=== PATIENT | female | born 1965 | race Caucasian/White ===

== ENCOUNTER 2018-11-10 17:47 | Inpatient (IN) | payer MEDICARE ==
[2018-11-10 19:02] LABS: ADD MAN DIFF? NO
[2018-11-10] MEDS: SOD CHLORIDE 0.9% 750 ML IV (19:05)
[2018-11-10 19:06] LABS: MODE ROOM AIR; MetHgb Venous 0.1 %; Sample Type Blood venous; Site VENOUS LINE; Venous COHb 0.4 %; Venous Fraction OxyHgb 49.4 %; Venous Oxygen Sat 49.6 mmHG (55.0-75.0); Venous Total Hemglobin 11.7 g/dl
[2018-11-10 19:07] LABS: WHITE BLOOD COUNT 12.1 10^3/ul (4.8-10.8)
[2018-11-10 19:07] LABS: BASOPHIL # 0.1 10^3/ul (0.0-0.1); BASOPHILS % 0.7 % (0.0-2.0); EOSINOPHILS # 0.2 10^3/ul (0.0-0.5); EOSINOPHILS % 1.6 % (0.0-7.0); HEMATOCRIT 35.6 % (37.0-47.0); HEMOGLOBIN 11.3 g/dl (12.0-16.0); LYMPHOCYTES # 2.3 10^3/ul (0.8-2.9); LYMPHOCYTES % 18.7 % (15.0-51.0); MEAN CORPUSCULAR HEMOGLOBIN 26.2 pg (29.0-33.0); MEAN CORPUSCULAR HGB CONC 31.7 g/dl (32.0-37.0); MEAN CORPUSCULAR VOLUME 82.6 fl (82.0-101.0); MEAN PLATELET VOLUME 12.2 fl (7.4-10.4); MONOCYTE # 0.9 10^3/ul (0.3-0.9); MONOCYTES % 7.8 % (0.0-11.0); NEUTROPHIL # 8.5 10^3/ul (1.6-7.5); PLATELET COUNT 356 10^3/UL (140-415); RED BLOOD COUNT 4.31 10^6/ul (4.20-5.40)
[2018-11-10 19:25] LABS: ALANINE AMINOTRANSFERASE 7 IU/L (13-69); ALBUMIN 2.9 g/dl (3.3-4.9); ALBUMIN/GLOBULIN RATIO 0.78; ALKALINE PHOSPHATASE 298 IU/L (42-121); ANION GAP 7 (5-13); ASPARTATE AMINO TRANSFERASE 16 IU/L (15-46); BILIRUBIN,INDIRECT 0.3 mg/dl (0-1.1); BILIRUBIN,TOTAL 0.3 mg/dl (0.2-1.3); BLOOD UREA NITROGEN 35 mg/dl (7-20); CALCIUM 8.6 mg/dl (8.4-10.2); CARBON DIOXIDE 24 mmol/L (21-31); CHLORIDE 93 mmol/L (97-110); CREATININE 2.02 mg/dl (0.44-1.00); Estimated GFR 26 mL/min (>60); PHOSPHORUS 4.9 mg/dl (2.5-4.9); POTASSIUM 3.8 mmol/L (3.5-5.1); SODIUM 124 mmol/L (135-144); TOTAL PROTEIN 6.6 g/dl (6.1-8.1)
[2018-11-10 19:33] LABS: INR 0.86; PROTIME 11.8 Sec (11.9-14.9); PT RATIO 0.9
[2018-11-10 19:35] LABS: GLUCOSE 854 mg/dl (70-220); TROPONIN-I < 0.012 ng/ml (0.000-0.120)
[2018-11-10] MEDS: LABETALOL HCL 20MG INJ IV (19:37)
[2018-11-10] MEDS: INSULIN REGULAR, HUMAN 100 UNIT/1 ML 3ML VIAL SC (20:25)
[2018-11-10] MEDS: hydrALAzine 20 MG INJ IV (20:25)
[2018-11-10] MEDS: ACCU-CHEK XX ×4 (21:27→23:30)
[2018-11-10] MEDS ORDERED: DEXTROSE 50% 50 ML SYRINGE IV ×4 (21:30→22:30)
[2018-11-10] MEDS: INSULIN HUMAN REGULAR 100 UNIT in SOD CHLORIDE 0.9% 99 ML IV (21:48)
[2018-11-10 22:16] LABS: ADD UMIC YES; UR ASCORBIC ACID NEGATIVE (NEGATIVE); UR BILIRUBIN (Dip) NEGATIVE (NEGATIVE); UR BLOOD (Dip) NEGATIVE (NEGATIVE); UR CLARITY CLEAR (CLEAR); UR COLOR COLORLESS (YELLOW); UR GLUCOSE (Dip) 3+ mg/dL (NEGATIVE); UR KETONES (Dip) TRACE mg/dL (NEGATIVE); UR LEUKOCYTE ESTERASE (Dip) NEGATIVE Leu/ul (NEGATIVE); UR NITRITE (Dip) NEGATIVE (NEGATIVE); UR RBC 1 /HPF (0-5); UR SPECIFIC GRAVITY (Dip) 1.016 (1.003-1.030); UR TOTAL PROTEIN (Dip) 3+ mg/dl (NEGATIVE); UR UROBILINOGEN (Dip) NEGATIVE (NEGATIVE); UR WBC 0 /HPF (0-5)
[2018-11-10] MEDS ORDERED: ALBUTEROL/IPRATROPIUM (NEB) 3 ML AMP NEB (22:30)
[2018-11-10] MEDS ORDERED: INSULIN HUMAN REGULAR 100 UNIT in SOD CHLORIDE 0.9% 99 ML IV (23:00)
[2018-11-10] MEDS: SOD CHLORIDE 0.9% 1,000 ML IV (23:50)
[2018-11-11] MEDS: ACCU-CHEK XX ×9 (01:07→09:04)
[2018-11-11] MEDS: morphine 4 MG/ML VIAL IV (01:26)
[2018-11-11 01:41] LABS: ANION GAP 12 (5-13); BLOOD UREA NITROGEN 34 mg/dl (7-20); CALCIUM 9.3 mg/dl (8.4-10.2); CARBON DIOXIDE 18 mmol/L (21-31); CHLORIDE 104 mmol/L (97-110); CREATININE 1.92 mg/dl (0.44-1.00); Estimated GFR 27 mL/min (>60); GLUCOSE 276 mg/dl (70-220); MAGNESIUM 1.8 mg/dl (1.7-2.5); PHOSPHORUS 1.7 mg/dl (2.5-4.9); SODIUM 134 mmol/L (135-144)
[2018-11-11 01:44] LABS: POTASSIUM 2.8 mmol/L (3.5-5.1)
[2018-11-11] MEDS: MAGNESIUM SULFATE 2 GM/50 ML 50 ML IVPB (02:31)
[2018-11-11] MEDS ORDERED: POTASSIUM CHLORIDE 20 MEQ in SOD CHLORIDE 0.9% 1,000 ML IV (02:51)
[2018-11-11] MEDS: NS + KCL 20 MEQ 1,000 ML IV ×3 (03:00→23:00)
[2018-11-11] MEDS: POTASSIUM PHOSPHATE 30 MM in SOD CHLORIDE 0.9% 250 ML IVPB (04:07)
[2018-11-11] MEDS: ONDANSETRON 4 MG INJ IV (05:16)
[2018-11-11] MEDS: HEPARIN 5,000 UNIT/1 ML VIAL SC ×2 (08:45→20:39)
[2018-11-11] MEDS: FAMOTIDINE 20 MG INJ IV (08:45)
[2018-11-11] MEDS: ACETAMINOPHEN 650MG/20.3ML CUP PO (08:51)
[2018-11-11 09:13] LABS: ADD MAN DIFF? NO
[2018-11-11 09:15] LABS: WHITE BLOOD COUNT 10.8 10^3/ul (4.8-10.8)
[2018-11-11 09:15] LABS: BASOPHILS % 0.4 % (0.0-2.0); EOSINOPHILS % 0.1 % (0.0-7.0); HEMATOCRIT 32.2 % (37.0-47.0); HEMOGLOBIN 10.8 g/dl (12.0-16.0); LYMPHOCYTES # 1.6 10^3/ul (0.8-2.9); LYMPHOCYTES % 15.1 % (15.0-51.0); MEAN CORPUSCULAR HEMOGLOBIN 26.5 pg (29.0-33.0); MEAN CORPUSCULAR HGB CONC 33.5 g/dl (32.0-37.0); MEAN CORPUSCULAR VOLUME 78.9 fl (82.0-101.0); MEAN PLATELET VOLUME 11.6 fl (7.4-10.4); MONOCYTE # 0.6 10^3/ul (0.3-0.9); MONOCYTES % 5.8 % (0.0-11.0); NEUTROPHIL # 8.4 10^3/ul (1.6-7.5); NEUTROPHILS % 77.3 % (39.0-77.0); PLATELET COUNT 355 10^3/UL (140-415); RED BLOOD COUNT 4.08 10^6/ul (4.20-5.40); RED CELL DISTRIBUTION WIDTH 14.2 % (11.5-14.5)
[2018-11-11 09:32] LABS: MAGNESIUM 2.5 mg/dl (1.7-2.5)
[2018-11-11 09:34] LABS: ALANINE AMINOTRANSFERASE 9 IU/L (13-69); ALBUMIN 2.6 g/dl (3.3-4.9); ALBUMIN/GLOBULIN RATIO 0.74; ALKALINE PHOSPHATASE 192 IU/L (42-121); ANION GAP 6 (5-13); ASPARTATE AMINO TRANSFERASE 19 IU/L (15-46); BILIRUBIN,INDIRECT 0.2 mg/dl (0-1.1); BILIRUBIN,TOTAL 0.2 mg/dl (0.2-1.3); BLOOD UREA NITROGEN 31 mg/dl (7-20); CALCIUM 8.5 mg/dl (8.4-10.2); CARBON DIOXIDE 23 mmol/L (21-31); CHLORIDE 107 mmol/L (97-110); CREATININE 1.81 mg/dl (0.44-1.00); Estimated GFR 29 mL/min (>60); GLUCOSE 155 mg/dl (70-220); HDL CHOLESTEROL 32 mg/dl (37-92); POTASSIUM 4.2 mmol/L (3.5-5.1); SODIUM 136 mmol/L (135-144); TOTAL PROTEIN 6.1 g/dl (6.1-8.1)
[2018-11-11 11:07] LABS: CHOL/HDL RATIO 13.3 RATIO; CHOLESTEROL 428 mg/dl (100-200); LDL CHOLESTEROL,CALCULATED 239 mg/dl
[2018-11-11 11:08] LABS: TRIGLYCERIDES 786 mg/dl (0-149)
[2018-11-11] MEDS: INSULIN ASPART [NOVOLOG] 3 ML PEN SC ×5 (11:30→20:37)
[2018-11-11 11:33] LABS: IRON 32 ug/dl (35-150)
[2018-11-11 11:42] LABS: % IRON SATURATION 22 % SAT (22-52); TOTAL IRON BINDING CAPACITY 145 ug/dl (241-421)
[2018-11-11] MEDS: INSULIN GLARGINE [LANTus] (100 UNITS/ML) SYG SC (11:46)
[2018-11-11 11:47] LABS: FREE T4 (FREE THYROXINE) 0.92 ng/dl (0.64-1.79)
[2018-11-11] MEDS: POTASSIUM PHOSPHATE 40 MEQ in SOD CHLORIDE 0.9% 250 ML IVPB (12:00)
[2018-11-11] MEDS ORDERED: GLUCOSE GEL 15 GRAM TUBE PO ×2 (12:30)
[2018-11-11] MEDS ORDERED: GLUCOSE GEL 15 GRAM TUBE BUCCAL (12:30)
[2018-11-11] MEDS ORDERED: GLUCAGON 1 MG INJ IM (12:30)
[2018-11-11] MEDS ORDERED: DEXTROSE 50% 50 ML SYRINGE IV ×2 (12:30)
[2018-11-11] MEDS ORDERED: INSULIN GLARGINE [LANTus] (100 UNITS/ML) SYG SC (20:00)
[2018-11-11 23:01] LABS: SODIUM,URINE RANDOM 41 mmol/L (30-90)
[2018-11-11 23:01] LABS: POTASSIUM,URINE RANDOM 52.4 mmol/L (25-125)
[2018-11-11 23:06] LABS: CREATININE,URINE RANDOM 56.77 mg/dl (20-320)
[2018-11-11 23:31] LABS: PROTEIN/CREAT RATIO 14.97 RATIO
[2018-11-12] MEDS: ACCU-CHEK XX (01:00)
[2018-11-12] MEDS: NS + KCL 20 MEQ 1,000 ML IV (01:08)
[2018-11-12] MEDS: hydrALAzine 20 MG INJ IV ×3 (03:39→20:46)
[2018-11-12 05:05] LABS: ADD MAN DIFF? NO
[2018-11-12 05:12] LABS: WHITE BLOOD COUNT 11.3 10^3/ul (4.8-10.8)
[2018-11-12 05:13] LABS: BASOPHIL # 0.1 10^3/ul (0.0-0.1); BASOPHILS % 0.5 % (0.0-2.0); EOSINOPHILS # 0.3 10^3/ul (0.0-0.5); EOSINOPHILS % 2.2 % (0.0-7.0); HEMATOCRIT 30.5 % (37.0-47.0); HEMOGLOBIN 9.8 g/dl (12.0-16.0); LYMPHOCYTES # 3.2 10^3/ul (0.8-2.9); LYMPHOCYTES % 28.7 % (15.0-51.0); MEAN CORPUSCULAR HEMOGLOBIN 26.3 pg (29.0-33.0); MEAN CORPUSCULAR HGB CONC 32.1 g/dl (32.0-37.0); MEAN PLATELET VOLUME 11.9 fl (7.4-10.4); MONOCYTE # 0.9 10^3/ul (0.3-0.9); MONOCYTES % 7.9 % (0.0-11.0); NEUTROPHIL # 6.7 10^3/ul (1.6-7.5); NEUTROPHILS % 59.3 % (39.0-77.0); PLATELET COUNT 327 10^3/UL (140-415); RED BLOOD COUNT 3.72 10^6/ul (4.20-5.40); RED CELL DISTRIBUTION WIDTH 14.6 % (11.5-14.5)
[2018-11-12 05:30] LABS: MAGNESIUM 2.2 mg/dl (1.7-2.5)
[2018-11-12 05:36] LABS: ANION GAP 4 (5-13); BLOOD UREA NITROGEN 28 mg/dl (7-20); CARBON DIOXIDE 20 mmol/L (21-31); CHLORIDE 113 mmol/L (97-110); CREATININE 1.97 mg/dl (0.44-1.00); Estimated GFR 27 mL/min (>60); GLUCOSE 289 mg/dl (70-220); POTASSIUM 4.8 mmol/L (3.5-5.1); SODIUM 137 mmol/L (135-144)
[2018-11-12 05:38] LABS: URIC ACID 6.6 mg/dl (3.1-7.9)
[2018-11-12 05:38] LABS: CREATINE KINASE 86 IU/L (23-200)
[2018-11-12] MEDS: ACETAMINOPHEN 650MG/20.3ML CUP PO ×2 (07:23→13:37)
[2018-11-12] MEDS: INSULIN ASPART [NOVOLOG] 3 ML PEN SC ×7 (07:58→20:59)
[2018-11-12] MEDS: FAMOTIDINE 20 MG INJ IV (09:05)
[2018-11-12] MEDS: HEPARIN 5,000 UNIT/1 ML VIAL SC ×2 (09:07→21:15)
[2018-11-12] MEDS: SOD CHLORIDE 0.9% 1,000 ML IV ×2 (10:01→18:31)
[2018-11-12] MEDS: SOD FERRIC GLUC COMPLX 125 MG in SOD CHLORIDE 0.9% 100 ML IVPB (17:38)
[2018-11-12] MEDS ORDERED: INSULIN GLARGINE [LANTus] (100 UNITS/ML) SYG SC (20:00)
[2018-11-12] MEDS: INSULIN GLARGINE [LANTus] (100 UNITS/ML) SYG SC (21:14)
[2018-11-13] MEDS: ACCU-CHEK XX (02:31)
[2018-11-13] MEDS: hydrALAzine 20 MG INJ IV (04:13)
[2018-11-13] MEDS: ACETAMINOPHEN 650MG/20.3ML CUP PO (04:13)
[2018-11-13 05:19] LABS: ADD MAN DIFF? NO
[2018-11-13 05:46] LABS: ANION GAP 6 (5-13); BLOOD UREA NITROGEN 29 mg/dl (7-20); CALCIUM 8.4 mg/dl (8.4-10.2); CARBON DIOXIDE 16 mmol/L (21-31); CHLORIDE 115 mmol/L (97-110); CREATININE 1.95 mg/dl (0.44-1.00); Estimated GFR 27 mL/min (>60); GLUCOSE 262 mg/dl (70-220); MAGNESIUM 2.1 mg/dl (1.7-2.5); PHOSPHORUS 4.3 mg/dl (2.5-4.9); POTASSIUM 4.5 mmol/L (3.5-5.1); SODIUM 137 mmol/L (135-144)
[2018-11-13 06:58] LABS: WHITE BLOOD COUNT 12.1 10^3/ul (4.8-10.8)
[2018-11-13 06:58] LABS: BASOPHIL # 0.1 10^3/ul (0.0-0.1); BASOPHILS % 0.6 % (0.0-2.0); EOSINOPHILS # 0.2 10^3/ul (0.0-0.5); EOSINOPHILS % 1.7 % (0.0-7.0); HEMATOCRIT 30.5 % (37.0-47.0); HEMOGLOBIN 9.9 g/dl (12.0-16.0); LYMPHOCYTES # 2.2 10^3/ul (0.8-2.9); LYMPHOCYTES % 18.4 % (15.0-51.0); MEAN CORPUSCULAR HEMOGLOBIN 26.6 pg (29.0-33.0); MEAN CORPUSCULAR HGB CONC 32.5 g/dl (32.0-37.0); MEAN PLATELET VOLUME 11.8 fl (7.4-10.4); MONOCYTES % 7.9 % (0.0-11.0); NEUTROPHIL # 8.5 10^3/ul (1.6-7.5); NEUTROPHILS % 69.8 % (39.0-77.0); PLATELET COUNT 344 10^3/UL (140-415); RED BLOOD COUNT 3.72 10^6/ul (4.20-5.40); RED CELL DISTRIBUTION WIDTH 14.8 % (11.5-14.5)
[2018-11-13] MEDS: SOD CHLORIDE 0.9% 1,000 ML IV ×2 (08:37→22:55)
[2018-11-13] MEDS: FAMOTIDINE 20 MG TAB PO (09:40)
[2018-11-13] MEDS: INSULIN ASPART [NOVOLOG] 3 ML PEN SC ×7 (09:47→21:09)
[2018-11-13] MEDS: HEPARIN 5,000 UNIT/1 ML VIAL SC ×2 (09:47→20:57)
[2018-11-13] MEDS: SOD FERRIC GLUC COMPLX 125 MG in SOD CHLORIDE 0.9% 100 ML IVPB (13:19)
[2018-11-13] MEDS: INSULIN GLARGINE [LANTus] (100 UNITS/ML) SYG SC (20:58)
[2018-11-14] MEDS: ACCU-CHEK XX (01:48)
[2018-11-14] MEDS: SOD CHLORIDE 0.9% 1,000 ML IV (05:32)
[2018-11-14 06:13] LABS: ADD MAN DIFF? NO
[2018-11-14 06:21] LABS: WHITE BLOOD COUNT 10.3 10^3/ul (4.8-10.8)
[2018-11-14 06:21] LABS: BASOPHIL # 0.1 10^3/ul (0.0-0.1); BASOPHILS % 0.6 % (0.0-2.0); EOSINOPHILS # 0.3 10^3/ul (0.0-0.5); EOSINOPHILS % 2.7 % (0.0-7.0); HEMOGLOBIN 9.1 g/dl (12.0-16.0); LYMPHOCYTES # 3.5 10^3/ul (0.8-2.9); LYMPHOCYTES % 33.4 % (15.0-51.0); MEAN CORPUSCULAR HEMOGLOBIN 26.3 pg (29.0-33.0); MEAN CORPUSCULAR HGB CONC 31.4 g/dl (32.0-37.0); MEAN CORPUSCULAR VOLUME 83.8 fl (82.0-101.0); MONOCYTES % 9.5 % (0.0-11.0); NEUTROPHIL # 5.5 10^3/ul (1.6-7.5); NEUTROPHILS % 52.6 % (39.0-77.0); PLATELET COUNT 339 10^3/UL (140-415); RED BLOOD COUNT 3.46 10^6/ul (4.20-5.40); RED CELL DISTRIBUTION WIDTH 14.8 % (11.5-14.5)
[2018-11-14 06:52] LABS: ANION GAP 4 (5-13); BLOOD UREA NITROGEN 23 mg/dl (7-20); CARBON DIOXIDE 19 mmol/L (21-31); CHLORIDE 118 mmol/L (97-110); CREATININE 1.75 mg/dl (0.44-1.00); GLUCOSE 74 mg/dl (70-220); POTASSIUM 3.9 mmol/L (3.5-5.1); SODIUM 141 mmol/L (135-144)
[2018-11-14 06:53] LABS: Estimated GFR 30 mL/min (>60)
[2018-11-14] MEDS: INSULIN ASPART [NOVOLOG] 3 ML PEN SC ×7 (08:09→20:07)
[2018-11-14] MEDS: FAMOTIDINE 20 MG TAB PO (08:11)
[2018-11-14] MEDS: HEPARIN 5,000 UNIT/1 ML VIAL SC ×2 (08:13→20:23)
[2018-11-14] MEDS: hydrALAzine 20 MG INJ IV ×2 (08:16→15:36)
[2018-11-14] MEDS: ACETAMINOPHEN 650MG/20.3ML CUP PO (12:59)
[2018-11-14] MEDS: SOD FERRIC GLUC COMPLX 125 MG in SOD CHLORIDE 0.9% 100 ML IVPB (14:57)
[2018-11-14] MEDS: AMLODIPINE 5 MG TAB PO (18:09)
[2018-11-14] MEDS: ENALAPRILAT 1.25 MG INJ IV (18:10)
[2018-11-14] MEDS: INSULIN GLARGINE [LANTus] (100 UNITS/ML) SYG SC (20:09)
[2018-11-15] MEDS: ACCU-CHEK XX (01:01)
[2018-11-15 05:01] LABS: ADD MAN DIFF? NO
[2018-11-15 05:08] LABS: WHITE BLOOD COUNT 10.5 10^3/ul (4.8-10.8)
[2018-11-15 05:08] LABS: BASOPHIL # 0.1 10^3/ul (0.0-0.1); BASOPHILS % 0.6 % (0.0-2.0); EOSINOPHILS # 0.2 10^3/ul (0.0-0.5); EOSINOPHILS % 2.3 % (0.0-7.0); HEMOGLOBIN 9.2 g/dl (12.0-16.0); LYMPHOCYTES # 2.8 10^3/ul (0.8-2.9); LYMPHOCYTES % 26.9 % (15.0-51.0); MEAN CORPUSCULAR HEMOGLOBIN 26.7 pg (29.0-33.0); MEAN CORPUSCULAR HGB CONC 31.7 g/dl (32.0-37.0); MEAN CORPUSCULAR VOLUME 84.3 fl (82.0-101.0); MEAN PLATELET VOLUME 11.8 fl (7.4-10.4); MONOCYTES % 9.2 % (0.0-11.0); NEUTROPHIL # 6.2 10^3/ul (1.6-7.5); PLATELET COUNT 364 10^3/UL (140-415); RED BLOOD COUNT 3.44 10^6/ul (4.20-5.40)
[2018-11-15 05:33] LABS: ANION GAP 5 (5-13); BLOOD UREA NITROGEN 25 mg/dl (7-20); CALCIUM 8.3 mg/dl (8.4-10.2); CARBON DIOXIDE 19 mmol/L (21-31); CHLORIDE 116 mmol/L (97-110); CREATININE 1.81 mg/dl (0.44-1.00); Estimated GFR 29 mL/min (>60); GLUCOSE 113 mg/dl (70-220); MAGNESIUM 2.1 mg/dl (1.7-2.5); POTASSIUM 4.2 mmol/L (3.5-5.1); SODIUM 140 mmol/L (135-144)
[2018-11-15 05:33] LABS: PHOSPHORUS 4.7 mg/dl (2.5-4.9)
[2018-11-15] MEDS: INSULIN ASPART [NOVOLOG] 3 ML PEN SC ×7 (08:00→20:35)
[2018-11-15] MEDS: FAMOTIDINE 20 MG TAB PO (08:17)
[2018-11-15] MEDS: AMLODIPINE 5 MG TAB PO (08:18)
[2018-11-15] MEDS: HEPARIN 5,000 UNIT/1 ML VIAL SC ×2 (08:19→20:52)
[2018-11-15] MEDS: HYDROCHLOROTHIAZIDE 25 MG TAB PO (15:28)
[2018-11-15] MEDS: INSULIN GLARGINE [LANTus] (100 UNITS/ML) SYG SC (20:00)
[2018-11-15] MEDS: hydrALAzine 20 MG INJ IV (20:37)
[2018-11-16] MEDS: ACCU-CHEK XX (01:27)
[2018-11-16 05:38] LABS: ADD MAN DIFF? NO
[2018-11-16 05:54] LABS: BASOPHIL # 0.1 10^3/ul (0.0-0.1); BASOPHILS % 0.7 % (0.0-2.0); EOSINOPHILS # 0.3 10^3/ul (0.0-0.5); EOSINOPHILS % 3.2 % (0.0-7.0); HEMATOCRIT 28.4 % (37.0-47.0); HEMOGLOBIN 8.9 g/dl (12.0-16.0); LYMPHOCYTES # 3.2 10^3/ul (0.8-2.9); MEAN CORPUSCULAR HEMOGLOBIN 26.8 pg (29.0-33.0); MEAN CORPUSCULAR HGB CONC 31.3 g/dl (32.0-37.0); MEAN CORPUSCULAR VOLUME 85.5 fl (82.0-101.0); MEAN PLATELET VOLUME 11.8 fl (7.4-10.4); MONOCYTE # 0.8 10^3/ul (0.3-0.9); MONOCYTES % 8.4 % (0.0-11.0); NEUTROPHIL # 4.5 10^3/ul (1.6-7.5); NEUTROPHILS % 49.8 % (39.0-77.0); PLATELET COUNT 348 10^3/UL (140-415); RED BLOOD COUNT 3.32 10^6/ul (4.20-5.40)
[2018-11-16] MEDS: ACETAMINOPHEN 650MG/20.3ML CUP PO (06:15)
[2018-11-16 06:20] LABS: ANION GAP 3 (5-13); BLOOD UREA NITROGEN 34 mg/dl (7-20); CALCIUM 8.4 mg/dl (8.4-10.2); CARBON DIOXIDE 21 mmol/L (21-31); CHLORIDE 115 mmol/L (97-110); CREATININE 1.89 mg/dl (0.44-1.00); Estimated GFR 28 mL/min (>60); GLUCOSE 118 mg/dl (70-220); POTASSIUM 4.4 mmol/L (3.5-5.1); SODIUM 139 mmol/L (135-144)
[2018-11-16] MEDS: FAMOTIDINE 20 MG TAB PO (08:08)
[2018-11-16] MEDS: HYDROCHLOROTHIAZIDE 25 MG TAB PO (08:09)
[2018-11-16] MEDS: AMLODIPINE 10 MG TAB PO (08:09)
[2018-11-16] MEDS: INSULIN ASPART [NOVOLOG] 3 ML PEN SC ×6 (08:10→17:48)
[2018-11-16] MEDS: HEPARIN 5,000 UNIT/1 ML VIAL SC (08:11)
== END 2018-11-16 20:10 | disposition home health service (06) | DRG 637 ==
LOC: 6WM 11-14 09:58 → E/R 17:47 → 2NE 11-14 21:14 → ICU 21:21
PROVIDERS: Internal Medicine
DX: E11.00 Type 2 diabetes mellitus with hyperosmolarity without nonketotic hyperglycemic-hyperosmolar coma (NKHHC) (principal); R65.11 Systemic inflammatory response syndrome (SIRS) of non-infectious origin with acute organ dysfunction; N17.9 Acute kidney failure, unspecified; I16.1 Hypertensive emergency; E87.2 Acidosis; E11.65 Type 2 diabetes mellitus with hyperglycemia; I12.9 Hypertensive chronic kidney disease with stage 1 through stage 4 chronic kidney disease, or unspecified chronic kidney disease; E11.22 Type 2 diabetes mellitus with diabetic chronic kidney disease; E78.00 Pure hypercholesterolemia, unspecified; D63.1 Anemia in chronic kidney disease; E03.9 Hypothyroidism, unspecified; Z91.14 Patient's other noncompliance with medication regimen; N18.3 Chronic kidney disease, stage 3 (moderate); E87.6 Hypokalemia; D17.71 Benign lipomatous neoplasm of kidney; N20.0 Calculus of kidney; Z87.891 Personal history of nicotine dependence; D50.9 Iron deficiency anemia, unspecified; H54.7 Unspecified visual loss; E11.21 Type 2 diabetes mellitus with diabetic nephropathy
CPT/HCPCS: 36415; 71045; 74150; 76775; 80048; 80053; 80061; 81001; 81003; 82436; 82550; 82570; 82803; 82962; 83036; 83540; 83735; 84100; 84133; 84300; 84439; 84443; 84484; 84560; 85025; 85610; 87081; 89190; 93005; 93971; 96361; 96372; 96374; 96375; 97162; 97167; 99285-25